=== PATIENT | male | born 1940 | race Caucasian/White ===

== ENCOUNTER → 2017-01-27 | Outpatient (CLI) | payer OTHER ==
[~2017-01-27] MED LIST: ASPCH81 PO; SIMV40TA2 PO
[2017-01-27 12:11] LABS: BASO % 0.9 %; BASO ABS # 0.04 K/uL (0-0.2); COMPLETE YES; HEMATOCRIT 39.4 % (42-52); IG% 0.2 %; LYMPH % 21.2 %; LYMPH ABS # 0.96 K/uL (1.2-3.4); MEAN CELL VOLUME 96.3 fL (80-100); MEAN CORPUSCULAR HEMOGLOBIN 35.5 pg (25-34); MEAN CORPUSCULAR HGB CONC 36.8 g/dl (32-36); MEAN PLATELET VOLUME 10.3 fL (7.4-10.4); MONO % 13.5 %; NEUT % 62.2 %; PLATELET COUNT 194 K/uL (130-400); RED BLOOD COUNT 4.09 M/uL (4.7-6.1); WHITE BLOOD COUNT 4.52 K/uL (4.8-10.8)
[2017-01-27 12:25] LABS: ALT/SGPT 22 U/L (12-78); BLOOD UREA NITROGEN 16 mg/dl (7-18); BUN/CREATININE RATIO 15.9 (10-20); CALCIUM 8.7 mg/dl (8.5-10.1); CARBON DIOXIDE 29 mmol/L (21-32); CHLORIDE 102 mmol/L (98-107); CHOLESTEROL 156 mg/dl (0-200); GLUCOSE 103 mg/dl (70-99); POTASSIUM 4.3 mmol/L (3.5-5.1); SODIUM 137 mmol/L (136-145); TRIGLYCERIDES 64 mg/dl (0-150); VERY LOW DENSITY LIPOPROT CALC 13 mg/dl
[2017-01-27 12:30] LABS: ALB/GLOB RATIO 1.6 (0.9-2); ALKALINE PHOSPHATASE 49 U/L (45-117); AST/SGOT 10 U/L (15-37); CHOLESTEROL/HDL RATIO 2.8; HDL CHOLESTEROL 55 mg/dl; LDL CHOLESTEROL CALCULATED 88 mg/dl; PROSTATE SPECIFIC ANTIGEN 0.084 ng/ml (0.000-4.000)
--- NOTE | 2017-02-02 06:52 | CODING QUERY MEDICAL NECESSITY ---
SUPPORTING DIAGNOSIS NEEDED Dr. Duncan, A supporting diagnosis is required for the test/procedure performed on this patient in order for us to be reimbursed by the patient's insurance. Please provide a supporting diagnosis for the following test/procedure listed below next to the test name along with your signature. *If there is no additional diagnosis for this patient that would support the following test/procedure please document that below next to the test/procedure. Test(s)/Procedure(s) that require a supporting diagnosis: * [id number] PSA DIAGNOSIS: DATE OF SERVICE: 01/27/17 Provider Signature: Date: Thank you [facility] Information Management Once completed, please kindly fax back to [phone] For questions please call [phone]
== END | disposition home or self-care (01) ==
LOC: C.LABBFT 08:05
PROVIDERS: ATTEND Internal Medicine
DX: Z00.00 Encounter for general adult medical examination without abnormal findings (principal); R39.9 Unspecified symptoms and signs involving the genitourinary system

== ENCOUNTER → 2018-01-25 | Outpatient (CLI) | payer OTHER ==
[2018-01-25 12:10] LABS: BASO % 0.8 %; BASO ABS # 0.04 K/uL (0-0.2); EOS % 3.6 %; EOS ABS # 0.17 K/uL (0-0.5); HEMATOCRIT 41.5 % (42-52); HEMOGLOBIN 14.8 g/dL (14.0-18.0); IG# 0.02 K/uL (0.00-0.02); LYMPH % 21.8 %; LYMPH ABS # 1.04 K/uL (1.2-3.4); MEAN CELL VOLUME 96.5 fL (80-100); MEAN CORPUSCULAR HEMOGLOBIN 34.4 pg (25-34); MEAN CORPUSCULAR HGB CONC 35.7 g/dl (32-36); MONO % 10.1 %; MONO ABS # 0.48 K/uL (0.11-0.59); NEUT % 63.3 %; NEUT ABS # 3.02 K/uL (1.4-6.5); PLATELET COUNT 210 K/uL (130-400); RED CELL DISTRIBUTION WIDTH CV 12.4 % (11.5-14.5); RED CELL DISTRIBUTION WIDTH SD 43.6 fL (36.4-46.3); WHITE BLOOD COUNT 4.77 K/uL (4.8-10.8)
[2018-01-25 12:30] LABS: ALBUMIN 4.2 gm/dl (3.4-5.0); ALT/SGPT 22 U/L (12-78); BLOOD UREA NITROGEN 17 mg/dl (7-18); CALCIUM 8.6 mg/dl (8.5-10.1); CARBON DIOXIDE 29 mmol/L (21-32); CHOLESTEROL 157 mg/dl (0-200); CREATININE 0.92 mg/dl (0.60-1.40); GLUCOSE 107 mg/dl (70-99); SODIUM 138 mmol/L (136-145)
[2018-01-25 12:34] LABS: ALKALINE PHOSPHATASE 55 U/L (45-117); AST/SGOT 15 U/L (15-37); LDL CHOLESTEROL CALCULATED 94 mg/dl; TOTAL PROTEIN 7.3 gm/dl (6.4-8.2)
== END | disposition home or self-care (01) ==
LOC: C.LAB 10:36
PROVIDERS: ATTEND Internal Medicine
DX: Z00.00 Encounter for general adult medical examination without abnormal findings (principal); E78.5 Hyperlipidemia, unspecified; R39.9 Unspecified symptoms and signs involving the genitourinary system; D72.819 Decreased white blood cell count, unspecified; N40.1 Benign prostatic hyperplasia with lower urinary tract symptoms; I49.1 Atrial premature depolarization

== ENCOUNTER 2025-08-27 13:51 | Observation (INO) ==
--- NOTE | 2025-08-27 14:26 | Electrocardiogram Report ---
Test Reason : Blood Pressure : */* mmHG Vent. Rate : 67 BPM Atrial Rate : 67 BPM P-R Int : 156 ms QRS Dur : 74 ms QT Int : 388 ms P-R-T Axes : 38 15 67 degrees QTcB Int : 409 ms Normal sinus rhythm Normal ECG When compared with ECG of 22-Jan-2009 07:30, No significant change Confirmed by Theodore Holland ([id number]) on 08/27/2025 2:26:22 PM Referred By: Confirmed By: Theodore Holland
[2025-08-27 14:33] LABS: Hematocrit (blood only) 42.2 % (42.0-52.0); Hemoglobin 14.7 g/dl (14.0-18.0); Mean Corpuscular Hemoglobin 33.2 pg (25.0-34.0); Mean Corpuscular Volume 95.3 fL (80.0-100.0); Platelet Count 181 K/uL (130-400); RDW Standard Deviation 40.7 fL (36.4-46.3); Red Blood Count 4.43 M/uL (4.70-6.10); White Blood Count 5.69 K/ul (4.8-10.8)
--- NOTE | 2025-08-27 14:34 | Emergency Department Note ---
Impression & Plan Brain TIA, Double vision, Elevated BUN ED Provider Note NAME: NATHAN JONES AGE: 84 SEX: M : 1940 ARRIVES VIA: Walk-In INFORMANT: Patient ED PROVIDER(S): Delmar Arias DO CHIEF COMPLAINT: Double vision out of right eye HPI: Patient is an 84-year-old male with a past medical history of BPH, Lyme disease, hyperlipidemia who presents to the ER for double vision out of his right eye. Started last night around 930. It resolved when he woke up this morning. He got up around 4 AM. Denies any weakness or numbness in the arms or legs. No chest pain or shortness of breath. No dysuria, urgency or frequency. No other exacerbating or remitting factors. He has never had this before. He notes with both eyes open and double vision was just on the right eye. When he closes right eye the vision went back to normal. ADDITIONAL HISTORY OBTAINED: Per HPI Chronic Medical/Social Conditions Affecting Care: Per HPI PAST MEDICAL HISTORY:See Below PAST SURGICAL HISTORY:See Below FAMILY HISTORY:See Below SOCIAL HISTORY:See Below HOME MEDICATIONS:See Below ALLERGIES:See Below VITALS:See Below PHYSICAL EXAMINATION: GENERAL: Sitting up in bed, alert, well appearing, well nourished, no distress, non-toxic EYE EXAM: normal conjunctiva. PERRL and EOM's grossly intact. OROPHARYNX: no exudate, no erythema, lips, buccal mucosa, and tongue normal and mucous membranes are moist NECK: supple, no nuchal rigidity, no adenopathy, non-tender LUNGS: Clear to auscultation. Normal chest wall mechanics HEART: no murmurs, S1 normal and S2 normal ABDOMEN: abdomen soft, non-tender, normo-active bowel sounds, no masses, no rebound or guarding. BACK: Back is symmetrical on inspection and there is no deformity, no midline tenderness, no CVA tenderness. SKIN: no rashes and no bruising UPPER EXTREMITIES: upper extremities are grossly normal. LOWER EXTREMITIES: No pitting edema. NEURO EXAM: Normal sensorium, cranial nerves II-XII intact, normal speech, no weakness of arms, no weakness of legs. No drift. Finger to nose intact. Gross sensation intact. 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 IV was established blood work was obtained. Labs show no significant leukocytosis or anemia. INR unremarkable. BMP with LFTs bilirubin is unremarkable. Patient was seen evaluated by ophthalmology as an outpatient and their exam was unremarkable and he was sent in here for stroke workup. CT of the head as well as angios of the head and neck do show a possible cerebellar infarct subacute. Patient is currently neurologically intact at this time. Discussed case with [facility] and they recommended admission and full workup. They did recommend 300 of Plavix and aspirin as well. They will place in note. Case was discussed with the hospitalist for further evaluation management treatment. Patient was out of the window for consideration for TNK. Consults/Care Managements Discussions: Per [facility] Triage Nursing notes reviewed. Limited review of prior medical records performed Vital Signs: reviewed and remarkable for no significant abnormalities Differential diagnosis: Differential Diagnosis includes but is not limited to ischemic Stroke, hemorrhagic stroke, bells palsy, mass, neoplasm, migraine headache, seizure, subarachnoid hemorrhage, TIA, and transient global amnesia. ER treatment provided: See below Diagnostics interpreted by me include EKG and cardiac monitoring as listed below: -Cardiac Monitoring: An order was placed for continuous cardiac monitoring. The monitor shows a rate of 70 with sinus rhythm. -ECG: Sinus rhythm rate of 67 Normal axis No PVCs QTc 409 -Laboratory studies:Interpreted by me as stated above in MDM and shown below. Imaging studies: Xrays: As interpreted by me: Chest x-ray was clean CTs show: CT angios of the head and neck as described above Procedures:none Critical Care: None Past Med/Surg History Problem List (Updated 08/27/25 @ 17:20 by Delmar Arias DO) Elevated BUN (Acute) Double vision (Acute) Brain TIA (Acute) HLD (hyperlipidemia) Diplopia TIA (transient ischemic attack) Systolic ejection murmur Family history of colon cancer BPH loc w/o ur obs/LUTS Carpal tunnel syndrome s/p surgical release Post-Lyme disease syndrome Vitamin B12 deficiency (non anemic) (Chronic) Impaired glucose metabolism (Chronic) Hyperlipidemia LDL goal <100 (Chronic) Benign colonic polyp (Chronic) Medical History History of COVID-19 Lyme disease Surgical History Hx of cataract extraction History of colonoscopy H/O vasectomy Family History Father Coronary heart disease Myocardial infarction Mother Multiple myeloma Sister Diabetes Hypertension Colorectal cancer Brother Dyslipidemia Denies family history of Ovarian cancer Prostate cancer Breast cancer Lung cancer Stroke Social History (Updated 02/26/25 @ 08:30 by Sharmila Das) Smoking Status: Never smoker Second Hand Exposure: No; Do You Dip or Chew Tobacco: No; Hx Alcohol Use: Yes Alcohol Intake Frequency: Never Hx Substance Use: No Preferred Language: Ghanaian Communication Ability: Effective Visual Impairment: Limited Hearing Ability: Normal Service Control Operator Required: No Beliefs That Will Affect Care: None marital status: Current Living Situation: Spouse current occupational status: retired How many Children do You have: 2 Feels Safe at Home: Yes Childhood Exposure to Second-Hand Smoke: No Diet: low salt caffeine: Yes Dental Care, Regularly: Yes Physical Activity Frequency: 3-4 Times per Week Physical Activity Frequency Comment: walks Seatbelt Use: always Sunscreen Use: No Do you think of yourself as: straight/heterosexual Assistive Devices: Glasses Allergies Allergies Allergy/AdvReac Type Severity Reaction Status Date / Time sulfite AdvReac Severe loose Verified 08/23/25 14:24 stools Home Meds Home Medications Medication Instructions Recorded Confirmed cyanocobalamin (vitamin B-12) 1,000 mcg PO QPM 09/24/23 08/27/25 1,000 mcg capsule melatonin 3 mg tablet 3 mg PO HS PRN prn 09/24/23 08/27/25 Previous Rx's Medication Instructions Recorded tamsulosin 0.4 mg capsule 0.4 mg PO QPM #90 caps 10/11/24 simvastatin 20 mg tablet 20 mg PO HS 90 days #90 tabs 06/14/25 escitalopram oxalate 5 mg tablet 5 mg PO DAILY #30 tabs 08/24/25 Results & Data (ED) Vital Signs Vital Signs - 24 hr 08/27/25 13:56 08/27/25 14:31 Temperature 35.6 C L Temperature Source Skin Pulse Rate 70 64 Respiratory Rate 17 Respiratory Effort / Characteristics Non-Labored Spontaneous Respiratory Depth Normal Respiratory Pattern Regular Blood Pressure 132/69 Blood Pressure Mean 90 Pulse Oximetry 98 Oxygen Delivery Method Room Air Sepsis Recent Fever Within 48 Hours No Sepsis New/Unexplained Change in Mental Status N/A Sepsis Action Taken by Nursing No Action Required Laboratory Data 08/27/25 14:13 08/27/25 14:13 Lab Results 08/27/25 Range/Units 14:13 WBC 5.69 (4.8-10.8) K/ul RBC 4.43 L (4.70-6.10) M/uL Hgb 14.7 (14.0-18.0) g/dl Hct 42.2 (42.0-52.0) % MCV 95.3 (80.0-100.0) fL MCH 33.2 (25.0-34.0) pg MCHC 34.8 (32.0-36.0) g/dL RDW Std Deviation 40.7 (36.4-46.3) fL RDW Coeff of Bridger 11.7 (11.5-14.5) % Plt Count 181 (130-400) K/uL MPV 9.3 L (9.4-12.4) fL PT 10.9 (9.0-12.0) Seconds INR 1.0 (0.9-1.1) APTT 24 (21-31) Seconds PTT Ratio 0.9 Sodium 140 (136-145) mmol/L Potassium 4.1 (3.5-5.1) mmol/L Chloride 104 (98-107) mmol/L Carbon Dioxide 30 (21-32) mmol/L Anion Gap 6 (3-11) BUN 26 H (6-23) mg/dl Creatinine 0.83 (0.6-1.4) mg/dl Est Cr Clr Drug Dosing 61.0 ml/min eGFR 86.84 BUN/Creatinine Ratio 31.3 H (10-20) Glucose 90 (70-99(Fasting)) mg/dl Calcium 9.5 (8.6-10.3) mg/dl Magnesium 2.3 (1.7-2.4) mg/dl Total Bilirubin 0.9 (0.2-1.0) mg/dl AST 12 L (13-39) U/L ALT 12 (7-52) U/L Alkaline Phosphatase 53 (34-104) U/L Total Protein 7.1 (6.0-8.3) gm/dl Albumin 4.3 (3.4-5.0) gm/dl Globulin 2.8 (2.5-4.0) gm/dl Albumin/Globulin Ratio 1.5 (0.9-2) Administered Medications Discontinued Medications Ioversol (Optiray 320 125ml) 115 ml IV ONCE ONE Stop: 08/27/25 15:06 Last Admin: 08/27/25 15:05 Dose: 115 ml Documented By: [facility] Imaging Data Radiologist's Impression: Chest X-Ray 08/27/25 14:04 XR chest 1V portable CLINICAL HISTORY: stroke alert COMPARISON STUDY: 01/22/2009 FINDINGS: Heart size and pulmonary vasculature are normal. No consolidation or pleural effusion seen. No pneumothorax. IMPRESSION: No acute findings. ACT 112: Negative or not required by law. Electronically signed by: Oscar Hernandez M.D. 08/27/2025 2:[address] 08/27/25 14:04 CT head/brain wo con CLINICAL HISTORY: 84 years-old Male with Neuro deficit, acute, stroke suspected. Acute stroke like symptoms TECHNIQUE: Multiple axial CT images of the head were obtained without contrast. A dose lowering technique was utilized adhering to the principles of ALARA. CT DOSE: 625.8 mGy.cm COMPARISON: None. FINDINGS: No acute intracranial hemorrhage, midline shift, intracranial mass, hydrocephalus, territorial ischemia or abnormal extra-axial collection. Involutional changes with white matter hypodensities suggest chronic microvascular ischemic disease. 8 mm age-indeterminate left cerebellar lacunar infarct on image 8 series 2. The calvarium is intact. The paranasal sinuses, mastoid air cells, and middle ear cavities are clear. IMPRESSION: 1. No acute intracranial abnormality identified. 2. Involutional changes with chronic microvascular ischemic disease. 3. Age indeterminate subcentimeter left cerebellar lacunar infarct. ACT 112: Negative or not required by law. The above report was generated using voice recognition software. It may contain grammatical, syntax or spelling errors. Electronically signed by: Dale Pritchard M.D. 08/27/2025 2:48 PM Head CTA 08/27/25 14:19 CT angio head w con CLINICAL HISTORY: 84 years-old Male with ? stroke. Acute stroke like symptoms COMPARISON STUDY: CTA neck of same day TECHNIQUE: Following the IV administration of 115 cc of Optiray, CT angiogram of the brain was performed from the skull base to the vertex. Images are reviewed in the axial, sagittal, and coronal planes. 3-D MIPS images are created and assessed. IV contrast was administered without complication. All measurements were obtained according to NASCET criteria. A dose lowering technique was utilized adhering to the principles of ALARA. CT DOSE: 420.15 mGy.cm FINDINGS: CT BRAIN: Dictated separately.. CT ANGIOGRAM OF THE BRAIN: The imaged bilateral internal carotid arteries are patent. The bilateral anterior and middle cerebral arteries are also patent. The vertebrobasilar system and posterior cerebral arteries are widely patent. There is no aneurysm, high-grade stenosis, or proximal branch occlusion identified. Dural sinuses appear patent. IMPRESSION: Unremarkable CTA of the head. ACT 112: Negative or not required by law. The above report was generated using voice recognition software. It may contain grammatical, syntax or spelling errors. Electronically signed by: Dale Pritchard M.D. 08/27/2025 3:32 PM Neck CTA 08/27/25 14:19 CT ANGIOGRAM OF THE NECK CLINICAL HISTORY: Neurological deficit. Stroke like symptoms. COMPARISON STUDY: No priors TECHNIQUE: Following the IV administration of 115 of Optiray 320, CT angiogram of the neck was performed from the aortic arch to the skull base. Images are reviewed in the axial, sagittal, and coronal planes. 3-D MIPS images are created and assessed. IV contrast was administered without complication. All measurements were calculated based on NASCET criteria. A dose lowering technique was utilized adhering to the principles of ALARA. FINDINGS: Thoracic aorta: Visualized portions of the thoracic aorta are normal in caliber. The aortic arch demonstrates bovine variant anatomy. Right carotid arterial system: The right common carotid artery is widely patent, as are the right internal and external carotid arteries. Mild calcified plaque is seen in the carotid bulb. Left carotid arterial system: The left common carotid artery is widely patent, as are the left internal and external carotid arteries. Calcified plaque is seen in the carotid bulb. Vertebral arteries: Widely patent bilaterally noting left-sided dominance. Subclavian arteries: Widely patent bilaterally. Intracranial vasculature: The visualized intracranial vessels at the skull base are patent. Jugular veins: Patent bilaterally. Brain parenchyma: The visualized brain parenchyma the skull base is within normal limits. Lung apices: Partially visualized upper lobe lung parenchyma appears clear. Soft tissues: The visualized pharyngeal soft tissues are normal in appearance noting angiographic phase technique. The oropharyngeal airway appears widely patent. The salivary and thyroid glands are normal in appearance. No cervical lymphadenopathy is seen. Skeletal structures: The skeletal structures are osteopenic. The visualized calvarium at the skull base appears intact. The imaged cervical spine is maintained noting multilevel spondylosis. Sinuses and mastoids: There is mild mucosal thickening in the left maxillary antrum. The mastoid air cells are well pneumatized. IMPRESSION: Unremarkable CT angiogram of the neck. ACT 112: Negative or not required by law. Electronically signed by: Dre Cohen M.D. 08/27/2025 3:25 PM Discharge Plan Visit Data Chief Complaint: TIA Symptoms Stated Complaint: REF BY DOC FOR DOUBLE VISION, POSSIBLE TIA ED Provider: Delmar Arias Discharge Problem: Brain TIA, Double vision, Elevated BUN Condition: Fair Forms Stand Alone Forms: My [facility] Prescriptions Prescriptions: No Action tamsulosin 0.4 mg capsule 0.4 mg PO QPM Qty: 90 3RF simvastatin 20 mg tablet 20 mg PO HS 90 Days Qty: 90 4RF escitalopram oxalate 5 mg tablet 5 mg PO DAILY Qty: 30 5RF cyanocobalamin (vitamin B-12) 1,000 mcg capsule 1,000 mcg PO QPM melatonin 3 mg Tablet 3 mg PO HS PRN (Reason: prn) Referrals Referrals: Cecelia Mason MD [Primary Care Provider] -
--- NOTE | 2025-08-27 14:44 | XRay Report ---
XR chest 1V portable CLINICAL HISTORY: stroke alert COMPARISON STUDY: 01/22/2009 FINDINGS: Heart size and pulmonary vasculature are normal. No consolidation or pleural effusion seen. No pneumothorax. IMPRESSION: No acute findings. ACT 112: Negative or not required by law. Electronically signed by: Oscar Hernandez M.D. 08/27/2025 2:43 PM
--- NOTE | 2025-08-27 14:50 | CT Scan Report ---
CT head/brain wo con CLINICAL HISTORY: 84 years-old Male with Neuro deficit, acute, stroke suspected. Acute stroke like s ymptoms TECHNIQUE: Multiple axial CT images of the head were obtained without contrast. A dose lowering tech nique was utilized adhering to the principles of ALARA. CT DOSE: 625.8 mGy.cm COMPARISON: None. FINDINGS: No acute intracranial hemorrhage, midline shift, intracranial mass, hydrocephalus, territorial ischem ia or abnormal extra-axial collection. Involutional changes with white matter hypodensities suggest c hronic microvascular ischemic disease. 8 mm age-indeterminate left cerebellar lacunar infarct on imag e 8 series 2. The calvarium is intact. The paranasal sinuses, mastoid air cells, and middle ear cavities are clear . IMPRESSION: 1. No acute intracranial abnormality identified. 2. Involutional changes with chronic microvascular ischemic disease. 3. Age indeterminate subcentimeter left cerebellar lacunar infarct. ACT 112: Negative or not required by law. The above report was generated using voice recognition software. It may contain grammatical, syntax o r spelling errors. Electronically signed by: Dale Pritchard M.D. 08/27/2025 2:48 PM
[2025-08-27 14:51] LABS: Alanine Aminotransferase 12.0 U/L (7-52); Albumin Globulin Ratio 1.5 (0.9-2); Albumin Level 4.3 gm/dl (3.4-5.0); Alkaline Phosphatase 53.0 U/L (34-104); Anion Gap 6.0 (3-11); Bilirubin,Total 0.9 mg/dl (0.2-1.0); Blood Urea Nitrogen 26.0 mg/dl (6-23); Calcium 9.5 mg/dl (8.6-10.3); Carbon Dioxide 30.0 mmol/L (21-32); Chloride 104.0 mmol/L (98-107); Creatinine Clr Calc Pharmacy 61.0 ml/min; Globulin 2.8 gm/dl (2.5-4.0); Glucose 90.0 mg/dl (70-99(Fasting)); Magnesium 2.3 mg/dl (1.7-2.4); Potassium 4.1 mmol/L (3.5-5.1); Sodium 140.0 mmol/L (136-145); Total Protein 7.1 gm/dl (6.0-8.3)
[2025-08-27 15:02] LABS: INR 1.0 (0.9-1.1); Partial Thromboplastin Time 24 Seconds (21-31); Prothrombin Time 10.9 Seconds (9.0-12.0)
[2025-08-27] MEDS: OPTIRAY 320 125ml IV ONE (15:05)
--- NOTE | 2025-08-27 15:27 | CT Scan Report ---
CT ANGIOGRAM OF THE NECK CLINICAL HISTORY: Neurological deficit. Stroke like symptoms. COMPARISON STUDY: No priors TECHNIQUE: Following the IV administration of 115 of Optiray 320, CT angiogram of the neck was perfor med from the aortic arch to the skull base. Images are reviewed in the axial, sagittal, and coronal p lanes. 3-D MIPS images are created and assessed. IV contrast was administered without complication. A ll measurements were calculated based on NASCET criteria. A dose lowering technique was utilized adh ering to the principles of ALARA. FINDINGS: Thoracic aorta: Visualized portions of the thoracic aorta are normal in caliber. The aortic arch demo nstrates bovine variant anatomy. Right carotid arterial system: The right common carotid artery is widely patent, as are the right int ernal and external carotid arteries. Mild calcified plaque is seen in the carotid bulb. Left carotid arterial system: The left common carotid artery is widely patent, as are the left internal wholesaler al and external carotid arteries. Calcified plaque is seen in the carotid bulb. Vertebral arteries: Widely patent bilaterally noting left-sided dominance. Subclavian arteries: Widely patent bilaterally. Intracranial vasculature: The visualized intracranial vessels at the skull base are patent. Jugular veins: Patent bilaterally. Brain parenchyma: The visualized brain parenchyma the skull base is within normal limits. Lung apices: Partially visualized upper lobe lung parenchyma appears clear. Soft tissues: The visualized pharyngeal soft tissues are normal in appearance noting angiographic pha se technique. The oropharyngeal airway appears widely patent. The salivary and thyroid glands are nor mal in appearance. No cervical lymphadenopathy is seen. Skeletal structures: The skeletal structures are osteopenic. The visualized calvarium at the skull ba se appears intact. The imaged cervical spine is maintained noting multilevel spondylosis. Sinuses and mastoids: There is mild mucosal thickening in the left maxillary antrum. The mastoid air cells are well pneumatized. IMPRESSION: Unremarkable CT angiogram of the neck. ACT 112: Negative or not required by law. Electronically signed by: Dre Cohen M.D. 08/27/2025 3:25 PM
--- NOTE | 2025-08-27 15:34 | CT Scan Report ---
CT angio head w con CLINICAL HISTORY: 84 years-old Male with ? stroke. Acute stroke like symptoms COMPARISON STUDY: CTA neck of same day TECHNIQUE: Following the IV administration of 115 cc of Optiray, CT angiogram of the brain was perfor med from the skull base to the vertex. Images are reviewed in the axial, sagittal, and coronal planes . 3-D MIPS images are created and assessed. IV contrast was administered without complication. All me asurements were obtained according to NASCET criteria. A dose lowering technique was utilized adherin g to the principles of ALARA. CT DOSE: 420.15 mGy.cm FINDINGS: CT BRAIN: Dictated separately.. CT ANGIOGRAM OF THE BRAIN: The imaged bilateral internal carotid arteries are patent. The bilateral anterior and middle cerebral arteries are also patent. The vertebrobasilar system and posterior cerebral arteries are widely tomlinson nt. There is no aneurysm, high-grade stenosis, or proximal branch occlusion identified. Dural sinuses appear patent. IMPRESSION: Unremarkable CTA of the head. ACT 112: Negative or not required by law. The above report was generated using voice recognition software. It may contain grammatical, syntax o r spelling errors. Electronically signed by: Dale Pritchard M.D. 08/27/2025 3:32 PM
--- NOTE | 2025-08-27 16:23 | History & Physical Report ---
"Date of Service August 27, 2025 Assessment & Plan (1) TIA (transient ischemic attack): (2) Diplopia: (3) HLD (hyperlipidemia): (4) History of CVA (cerebrovascular accident): Plan This patient is a 84-year-old male who presented on 08/27 after developing an acute episode of diplopia the night prior to arrival. His symptoms began at 9 PM on 08/26, and lasted until he fell asleep a couple hours later. He woke up and all symptoms had resolved. He denied prior history of stroke or TIA on arrival. He went in to see his eye doctor that morning, and was told to come into the Emergency Department for TIA workup. #TIA symptoms | diplopia Not a TNKase candidate based on patient's timeline of symptoms Head CT revealed an age-indeterminate left cerebellar lacunar infarct; no acute intracranial abnormalities Head/neck CTA unremarkable Brain MRI ordered, pending Echocardiogram with bubble study ordered, pending Passed dysphagia screen; okay for p.o. intake Plavix 300 mg p.o. loading dose x 1 Initiate patient on DAPT with aspirin 81 mg and Plavix 75 mg daily No need for permissive HTN, as patient has been asymptomatic for almost 24h at time of admission and is normotensive on arrival Fall precautions PT/OT evaluations appreciated #History of prior stroke Age-indeterminate stroke noted on head CT; patient was unaware of this He was previously on aspirin 81 mg daily x 7 years for a [place] study, but stopped taking this medication at the end of the study Do not suspect prior stroke stroke was the cause of his acute symptoms #HLD Most recent fasting lipid panel on 08/23 revealed TGs, cholesterol, LDL, and VLDL all within normal limits Hold simvastatin 20 mg HS Start on atorvastatin 80 mg HS #BPH Continue tamsulosin #Depression Continue escitalopram Disposition: Obs - Admit to [facility] telemetry VTE PPx: SCDs History of Present Illness Chief Complaint: TIA symptoms Primary Care Provider: Cecelia Mason MD Mr. Remy is an 84-year-old male with PMH of vitamin B12 deficiency and colon cancer. He presented on 08/27 for double vision that developed the night prior. Patient was feeling fine up until 9 PM when he developed diplopia in both eyes. He was gradually improving prior to bedtime, and then he woke up without any residual symptoms. No eye pain, or loss of vision. He went into see his eye doctor this morning, and was referred to the emergency department to be assessed for a TIA. Currently, all of his symptoms have fully resolved. He denies any prior history of stroke or TIA. He denies any strokelike symptoms such as slurred speech, facial droop, unilateral deficits. No PMH of T2DM or HTN. He does have a history of HLD, but was told that he might be able to be taken off the statin recently. Of note, the only recent medication change is that he was started on Lexapro a couple days ago for anxiety/depression, and he has taken 2 doses in that period of time. Patient denies any sick contacts. NKDA. No reason why he could not take aspirin or Plavix, and he was previously on aspirin x 7 years while in the [place] study. No PMH of GI bleeds or head bleeds. Patient denies smoking, tobacco use, or recent alcohol use. Patient is slightly hypothermic at 35.6 C at time of admission; vitals otherwise stable. ED course: ROS: Patient endorses tinnitus (which is chronic and has been present for the past 30 years) Patient denies fever, chills, night sweats, loss of vision, headache, rashes, tick bites, slurred speech, facial droop, unilateral deficits, chest pain, SOB, cough, abdominal pain, N/V/D, change in urinary bowel habits, or numbness or tingling in the arms or legs. Allergies Allergy/AdvReac Type Severity Reaction Status Date / Time sulfite AdvReac Severe loose Verified 08/23/25 14:24 stools Home Medications Medication Instructions Recorded Confirmed Type cyanocobalamin (vitamin B-12) 1,000 mcg PO QPM 09/24/23 08/27/25 History 1,000 mcg capsule melatonin 3 mg tablet 3 mg PO HS PRN prn 09/24/23 08/27/25 History tamsulosin 0.4 mg capsule 0.4 mg PO QPM #90 caps 10/11/24 08/27/25 Rx simvastatin 20 mg tablet 20 mg PO HS 90 days #90 tabs 06/14/25 08/27/25 Rx escitalopram oxalate 5 mg tablet 5 mg PO DAILY #30 tabs 08/24/25 08/27/25 Rx Past Med/Surg History Problem List (Updated 11/03/25 @ 18:01 by Eitan Huffman PA-C) History of CVA (cerebrovascular accident) Elevated BUN (Acute) Double vision (Acute) Brain TIA (Acute) HLD (hyperlipidemia) Diplopia TIA (transient ischemic attack) Systolic ejection murmur Family history of colon cancer BPH loc w/o ur obs/LUTS Carpal tunnel syndrome s/p surgical release Post-Lyme disease syndrome Vitamin B12 deficiency (non anemic) (Chronic) Impaired glucose metabolism (Chronic) Hyperlipidemia LDL goal <100 (Chronic) Benign colonic polyp (Chronic) Medical History History of COVID-19 Lyme disease Surgical History Hx of cataract extraction History of colonoscopy H/O vasectomy Family History Father Coronary heart disease Myocardial infarction Mother Multiple myeloma Sister Diabetes Hypertension Colorectal cancer Brother Dyslipidemia Denies family history of Ovarian cancer Prostate cancer Breast cancer Lung cancer Stroke Social History (Updated 02/26/25 @ 08:30 by Sharmila Das) Smoking Status: Never smoker Second Hand Exposure: No; Do You Dip or Chew Tobacco: No; Hx Alcohol Use: No Hx Substance Use: No Preferred Language: Kazakh Communication Ability: Effective Visual Impairment: Limited Hearing Ability: Normal Cotton 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 Required: No Beliefs That Will Affect Care: None marital status: Current Living Situation: Spouse current occupational status: retired How many Children do You have: 2 Feels Safe at Home: Yes Safety Concerns: Feels Safe At This Time Childhood Exposure to Second-Hand Smoke: No Diet: low salt caffeine: Yes Dental Care, Regularly: Yes Physical Activity Frequency: 3-4 Times per Week Physical Activity Frequency Comment: walks Seatbelt Use: always Sunscreen Use: No Do you think of yourself as: straight/heterosexual Assistive Devices: Glasses Review of Systems Review of Systems: See HPI above Physical Exam Physical Exam: General: no acute distress; pleasant affect; anxious; family at bedside; non- toxic appearing; cooperative; SpO2 98% on RA HEENT: normocephalic, atraumatic; PERRLA (eyes are dilated bilaterally) with EOMs intact; vision and hearing appear grossly intact; patient demonstrates ability to protrude and wiggle tongue bilaterally without unilateral deficits; patient demonstrates ability to smile, frown, and lift eyebrows without unilateral deficits appreciated Neck: supple; trachea midline Skin: warm, dry without signs of tenting; no cyanosis; no rashes, bruising, lesions, or erythema noted CV: chest wall NTP; RRR; S1/S2 normal; no murmurs/rubs/gallops; pulses intact and symmetric at radial, DP, and PT Lungs: no acute respiratory distress; symmetrical chest wall expansion; clear breath sounds across all lung sánchez w/o adventitious sounds; no wheezing ABD: Soft, NTP; BS present; no rebound/guarding; no distention MSK: no tics or fasciculations; no edema noted in the LEs b/l, nonerythematous; 5/5 veterinary dentist strength bilaterally; 5/5 strength in the upper no extremities bilaterally with flexion/extension assessed at the elbows and knees Neuro: A&Ox3; normal mood and affect; fluent speech; no facial droop; no slurred speech; negative pronator drift; patient reports sensation is intact and symmetric in the face, UE's, and LE's bilaterally Results & Data Results & Data Vital Signs (Past 12 Hours) Vital Signs Temp Pulse Resp BP Pulse Ox O2 Del Method 08/27/25 14:31 64 08/27/25 13:56 35.6 C L 70 17 132/69 98 Room Air Laboratory Results Abnormal lab results 08/27/25 Range/Units 14:13 RBC 4.43 L (4.70-6.10) M/uL MPV 9.3 L (9.4-12.4) fL BUN 26 H (6-23) mg/dl BUN/Creatinine Ratio 31.3 H (10-20) AST 12 L (13-39) U/L Diagnostic Findings Chest X-Ray 08/27/25 14:04 XR chest 1V portable CLINICAL HISTORY: stroke alert COMPARISON STUDY: 01/22/2009 FINDINGS: Heart size and pulmonary vasculature are normal. No consolidation or pleural effusion seen. No pneumothorax. IMPRESSION: No acute findings. ACT 112: Negative or not required by law. Electronically signed by: Oscar Hernandez M.D. 08/27/2025 2:[address] 08/27/25 14:04 CT head/brain wo con CLINICAL HISTORY: 84 years-old Male with Neuro deficit, acute, stroke suspected. Acute stroke like symptoms TECHNIQUE: Multiple axial CT images of the head were obtained without contrast. A dose lowering technique was utilized adhering to the principles of ALARA. CT DOSE: 625.8 mGy.cm COMPARISON: None. FINDINGS: No acute intracranial hemorrhage, midline shift, intracranial mass, hydrocephalus, territorial ischemia or abnormal extra-axial collection. Involutional changes with white matter hypodensities suggest chronic microvascular ischemic disease. 8 mm age-indeterminate left cerebellar lacunar infarct on image 8 series 2. The calvarium is intact. The paranasal sinuses, mastoid air cells, and middle ear cavities are clear. IMPRESSION: 1. No acute intracranial abnormality identified. 2. Involutional changes with chronic microvascular ischemic disease. 3. Age indeterminate subcentimeter left cerebellar lacunar infarct. ACT 112: Negative or not required by law. The above report was generated using voice recognition software. It may contain grammatical, syntax or spelling errors. Electronically signed by: Dale Pritchard M.D. 08/27/2025 2:48 PM Head CTA 08/27/25 14:19 CT angio head w con CLINICAL HISTORY: 84 years-old Male with ? stroke. Acute stroke like symptoms COMPARISON STUDY: CTA neck of same day TECHNIQUE: Following the IV administration of 115 cc of Optiray, CT angiogram of the brain was performed from the skull base to the vertex. Images are reviewed in the axial, sagittal, and coronal planes. 3-D MIPS images are created and assessed. IV contrast was administered without complication. All measurements were obtained according to NASCET criteria. A dose lowering technique was utilized adhering to the principles of ALARA. CT DOSE: 420.15 mGy.cm FINDINGS: CT BRAIN: Dictated separately.. CT ANGIOGRAM OF THE BRAIN: The imaged bilateral internal carotid arteries are patent. The bilateral anterior and middle cerebral arteries are also patent. The vertebrobasilar system and posterior cerebral arteries are widely patent. There is no aneurysm, high-grade stenosis, or proximal branch occlusion identified. Dural sinuses appear patent. IMPRESSION: Unremarkable CTA of the head. ACT 112: Negative or not required by law. The above report was generated using voice recognition software. It may contain grammatical, syntax or spelling errors. Electronically signed by: Dale Pritchard M.D. 08/27/2025 3:32 PM Neck CTA 08/27/25 14:19 CT ANGIOGRAM OF THE NECK CLINICAL HISTORY: Neurological deficit. Stroke like symptoms. COMPARISON STUDY: No priors TECHNIQUE: Following the IV administration of 115 of Optiray 320, CT angiogram of the neck was performed from the aortic arch to the skull base. Images are reviewed in the axial, sagittal, and coronal planes. 3-D MIPS images are created and assessed. IV contrast was administered without complication. All measurements were calculated based on NASCET criteria. A dose lowering technique was utilized adhering to the principles of ALARA. FINDINGS: Thoracic aorta: Visualized portions of the thoracic aorta are normal in caliber. The aortic arch demonstrates bovine variant anatomy. Right carotid arterial system: The right common carotid artery is widely patent, as are the right internal and external carotid arteries. Mild calcified plaque is seen in the carotid bulb. Left carotid arterial system: The left common carotid artery is widely patent, as are the left internal and external carotid arteries. Calcified plaque is seen in the carotid bulb. Vertebral arteries: Widely patent bilaterally noting left-sided dominance. Subclavian arteries: Widely patent bilaterally. Intracranial vasculature: The visualized intracranial vessels at the skull base are patent. Jugular veins: Patent bilaterally. Brain parenchyma: The visualized brain parenchyma the skull base is within normal limits. Lung apices: Partially visualized upper lobe lung parenchyma appears clear. Soft tissues: The visualized pharyngeal soft tissues are normal in appearance noting angiographic phase technique. The oropharyngeal airway appears widely patent. The salivary and thyroid glands are normal in appearance. No cervical lymphadenopathy is seen. Skeletal structures: The skeletal structures are osteopenic. The visualized calvarium at the skull base appears intact. The imaged cervical spine is maintained noting multilevel spondylosis. Sinuses and mastoids: There is mild mucosal thickening in the left maxillary antrum. The mastoid air cells are well pneumatized. IMPRESSION: Unremarkable CT angiogram of the neck. ACT 112: Negative or not required by law. Electronically signed by: Dre Cohen M.D. 08/27/2025 3:25 PM ECG Additional Comments: ECG revealed NSR at 67 bpm; QTc 409 Code Status & VTE Plan Code Status Full code VTE Prophylaxis Plan VTE Prophylaxis will be ordered: Yes Supervising Physician Co-Signing Physician Notes I personally saw and examined the patient. I independently reviewed the labs, EKG, imaging, problem list, medication list, past medical history and family his tory. I verified all riggs points and agree with Eitan Huffman PA-C with the following exceptions and/or additions: 84 year old with no known prior stroke present so the ER with binocular diplopia. He feels as if the problem was with the right eye. Occurred with both left and right lateral vision. Resolved with monocular vision. Lasted for 2 hours. O/E HS RRR, no murmurs, Chest CTAB, Abdo SNT, CN 2->12 intact, no extremity weakness or loss of sensation A/P Old CVA + suspected TIA DAPT (21 days then aspirin alone), atorvastatin, Brain MRI negative. Monitor on telemetry overnight. TTE with bubble study. Follow up with neurology as outpatient. PG Care Time/CCT Total # of Minutes Spent Total Time Spent with Patient: Total time spent is greater than 50% in coordination of care (as documented) at patient's floor/unit and/or counseling patient: Coding [place] [address] INT INP/OBS CARE 3/75MIN Patient Type Established Medical Decision Making High Complexity Diagnoses TIA (transient ischemic attack) G45.9 Diplopia H53.2 HLD (hyperlipidemia) E78.5 History of CVA (cerebrovascular accident) Z86.73"
[2025-08-27] MEDS ORDERED: PHARMACIST DISCHARGE MED REC CONSULT PRN (16:29)
--- NOTE | 2025-08-27 17:56 | Magnetic Resonance Report ---
MRI of the brain performed without IV contrast History: Double vision Comparison: None Technique: Sagittal T1-weighted and axial T2-weighted, T2/FLAIR and diffusion-weighted with ADC map images of the brain were obtained without IV contrast. Findings: No evidence for intracranial mass lesion, mass-effect, midline shift, or abnormal extra-axial fluid collection. Cerebral atrophy is moderate. Minimal chronic small vessel ischemic changes. No abnormally reduced diffusion or evidence for acute infarct. Normal intravascular flow voids. Bilateral pseudophakia. Impression: Normal brain MRI Electronically signed by Chidi Pérez 08-27-2025 5:56 PM
[2025-08-27] MEDS ORDERED: MELATONIN 3 MG TAB PO PRN (19:13)
[2025-08-27] MEDS ORDERED: ACETAMINOPHEN 325 MG TAB PO PRN (19:13)
[2025-08-27] MEDS: CLOPIDOGREL BISULFATE 300 MG TAB PO STA (19:27)
[2025-08-27] MEDS: ASPIRIN 81 MG ECTAB PO STA (19:28)
[2025-08-27] MEDS: TAMSULOSIN HCL 0.4 MG CAP PO SCH (21:00)
[2025-08-27] MEDS: ATORVASTATIN 40 MG TAB PO SCH (21:00)
[2025-08-28 06:59] LABS: Hematocrit (blood only) 36.0 % (42.0-52.0); Hemoglobin 12.7 g/dl (14.0-18.0); Immature Granulocytes # (auto) 0.03 K/uL (0.01-0.20); Immature Granulocytes % (auto) 0.4 %; Mean Corpuscular Hemoglobin 33.2 pg (25.0-34.0); Mean Corpuscular Volume 94.0 fL (80.0-100.0); Platelet Count 161 K/uL (130-400); RDW Standard Deviation 39.4 fL (36.4-46.3); Red Blood Count 3.83 M/uL (4.70-6.10); White Blood Count 7.47 K/ul (4.8-10.8)
[2025-08-28 07:25] LABS: Anion Gap 6.0 (3-11); Blood Urea Nitrogen 22.0 mg/dl (6-23); Calcium 8.5 mg/dl (8.6-10.3); Carbon Dioxide 28.0 mmol/L (21-32); Chloride 106.0 mmol/L (98-107); Cholesterol 119.0 mg/dl (0-200); Creatinine Clr Calc Pharmacy 68.2 ml/min; Glucose 82.0 mg/dl (70-99(Fasting)); HDL Cholesterol 47.0 mg/dl; Potassium 4.2 mmol/L (3.5-5.1); Sodium 140.0 mmol/L (136-145); Triglycerides 43.0 mg/dl (0-150)
[2025-08-28 07:39] LABS: Hemoglobin A1C 5.5 % (4.5-5.6)
[2025-08-28 07:44] VITALS: RESP 16; TEMP 98.1; O2SAT 97
[2025-08-28] MEDS: ASPIRIN 81 MG ECTAB PO SCH (08:38)
[2025-08-28] MEDS: CLOPIDOGREL BISULFATE 75 MG TAB PO SCH (08:38)
[2025-08-28 10:27] VITALS: PULSE 73
[2025-08-28] MEDS: ESCITALOPRAM OXALATE 10 MG TAB PO SCH (11:19)
--- NOTE | 2025-08-28 11:31 | Discharge Summary ---
"Discharge Summary Date of Service August 28, 2025 Principal Dx & Hospital Course #1 = Principal Diagnosis (1) TIA (transient ischemic attack): (2) Diplopia: (3) HLD (hyperlipidemia): (4) History of CVA (cerebrovascular accident): Plan This patient is a 84-year-old male who presented on 08/27 after developing an acute episode of diplopia the night prior to arrival. His symptoms began at 9 PM on 08/26, and lasted until he fell asleep a couple hours later. He woke up and all symptoms had resolved. He denied prior history of stroke or TIA on arrival. He went in to see his eye doctor that morning, and was told to come into the Emergency Department for TIA workup. #TIA| diplopia Not a TNKase candidate based on patient's timeline of symptoms Head CT revealed an age-indeterminate left cerebellar lacunar infarct; no acute intracranial abnormalities Head/neck CTA unremarkable Brain MRI revealed no acute abnormalities; however, this imaging was ran by our neurology team, who did reconfirm age-indeterminate left cerebellar stroke Echocardiogram with bubble did not reveal an intra-arterial shunt/PFO; patient was informed of this findings Plavix 300 mg p.o. loading dose x 1 in the ED Initiate patient on DAPT with aspirin 81 mg and Plavix 75 mg daily No need for permissive HTN, as patient has been asymptomatic for almost 24h at time of admission and is normotensive on arrival No recurrence of patient's symptoms while he was in the hospital; full resolution prior to arrival Will plan to discharge patient on DAPT (aspirin 81 mg and Plavix 75 mg daily) x 21 days Discharged on atorvastatin 40 mg p.o. HS Fall precautions PT/OT evaluations appreciated #History of prior left cerebellar infarct Age-indeterminate stroke noted on head CT; patient was unaware of this Do not suspect prior stroke stroke was the cause of his acute symptoms #HLD Fasting lipid panel WNL Hold simvastatin 20 mg HS Initiate atorvastatin 40 mg p.o. HS on discharge #BPH Continue tamsulosin #Depression Continue escitalopram Day of discharge 08/28: VSS overnight Mr. Remy is in good spirits this morning. He is hoping to be discharged today. He has had no recurrence of diplopia. He does report that diplopia occurred only in his right eye, and only lasted for a few hours. He reports that he did not know about his prior history of stroke. While he was previously on aspirin 81 mg daily x 7 years for a however study, he stopped taking this after the end of his study. ROS: Patient denies fever, chills, night sweats, loss of vision, headache, rashes, tick bites, slurred speech, facial droop, unilateral deficits, chest pain, SOB, cough, abdominal pain, N/V/D, change in urinary bowel habits, or numbness or tingling in the arms or legs. Disposition: Discharge home Notes For Next Care Provider Patient hospitalized for right eye diplopia which lasted for several hours. Patient went to bed with a dual phobia and awoke to find his symptoms it fully resolved. No recurrence while in the hospital. Patient was found to have a age-indeterminate left cerebellar lacunar infarct on imaging, which she was unaware of. His symptoms are consistent with TIA. Will discharge patient on DAPT x 21 days, followed by aspirin monotherapy. Will also discharge patient on atorvastatin 40 mg p.o. HS. Patient will require a follow-up with neurology as an outpatient, as well as monitoring specialist as an outpatient. Admission HPI Per Admitting Provider Mr. Remy is an 84-year-old male with PMH of vitamin B12 deficiency and colon cancer. He presented on 08/27 for double vision that developed the night prior. Patient was feeling fine up until 9 PM when he developed diplopia in both eyes. He was gradually improving prior to bedtime, and then he woke up without any residual symptoms. No eye pain, or loss of vision. He went into see his eye doctor this morning, and was referred to the emergency department to be assessed for a TIA. Currently, all of his symptoms have fully resolved. He denies any prior history of stroke or TIA. He denies any strokelike symptoms such as slurred speech, facial droop, unilateral deficits. No PMH of T2DM or HTN. He does have a history of HLD, but was told that he might be able to be taken off the statin recently. Of note, the only recent medication change is that he was started on Lexapro a couple days ago for anxiety/depression, and he has taken 2 doses in that period of time. Patient denies any sick contacts. NKDA. No reason why he could not take aspirin or Plavix, and he was previously on aspirin x 7 years while in the [place] study. No PMH of GI bleeds or head bleeds. Patient denies smoking, tobacco use, or recent alcohol use. Patient is slightly hypothermic at 35.6 C at time of admission; vitals otherwise stable. ED course: ROS: Patient endorses tinnitus (which is chronic and has been present for the past 30 years) Patient denies fever, chills, night sweats, loss of vision, headache, rashes, tick bites, slurred speech, facial droop, unilateral deficits, chest pain, SOB, cough, abdominal pain, N/V/D, change in urinary bowel habits, or numbness or tin gling in the arms or legs. Admission Exam Per Admitting Provider General: no acute distress; pleasant affect; anxious; family at bedside; non- toxic appearing; cooperative; SpO2 98% on RA HEENT: normocephalic, atraumatic; PERRLA (eyes are dilated bilaterally) with EOMs intact; vision and hearing appear grossly intact; patient demonstrates ability to protrude and wiggle tongue bilaterally without unilateral deficits; patient demonstrates ability to smile, frown, and lift eyebrows without unilateral deficits appreciated Neck: supple; trachea midline Skin: warm, dry without signs of tenting; no cyanosis; no rashes, bruising, lesions, or erythema noted CV: chest wall NTP; RRR; S1/S2 normal; no murmurs/rubs/gallops; pulses intact and symmetric at radial, DP, and PT Lungs: no acute respiratory distress; symmetrical chest wall expansion; clear breath sounds across all lung sánchez w/o adventitious sounds; no wheezing ABD: Soft, NTP; BS present; no rebound/guarding; no distention MSK: no tics or fasciculations; no edema noted in the LEs b/l, nonerythematous; 5/5 director of marketing strength bilaterally; 5/5 strength in the upper no extremities bilaterally with flexion/extension assessed at the elbows and knees Neuro: A&Ox3; normal mood and affect; fluent speech; no facial droop; no slurred speech; negative pronator drift; patient reports sensation is intact and symmetric in the face, UE's, and LE's bilaterally Discharge Exam General: no acute distress; pleasant affect; resting peacefully in bed; non- toxic appearing; cooperative; SpO2 97% on RA HEENT: normocephalic, atraumatic; PERRLA with EOMs intact; vision and hearing intact Neck: supple; trachea midline Skin: warm, dry without signs of tenting; no cyanosis; no rashes, bruising, lesions, or erythema noted CV: chest wall NTP; RRR; S1/S2 normal; no murmurs/rubs/gallops; pulses intact and symmetric at radial, DP, and PT Lungs: no acute respiratory distress; symmetrical chest wall expansion; clear breath sounds across all lung sánchez w/o adventitious sounds; no wheezing ABD: Soft, NTP; BS present; no rebound/guarding; no distention MSK: no tics or fasciculations; no edema noted in the LEs b/l, nonerythematous; 5/5 director of marketing strength bilaterally Neuro: A&Ox3; normal mood and affect; fluent speech; no facial droop; no slurred speech; patient reports sensation is intact and symmetric in the face, UE's, and LE's bilaterally Discharge Plan Discharge Items Patient Disposition: Home - Self-Care Reason For Visit: DIPLOPIA, TIA SYMPTOMS Discharge Diagnosis: TIA Condition on Discharge: Good Activity: Resume your previous activity Non-emergency contact: Primary Care Provider and Neurologist Call non-emergency contact if: you have any medication questions and your symptoms worsen Follow-up/Referrals: Cecelia Mason MD [Primary Care Provider] - 09/04/25 11:00 am Diet: Regular Addtl Attending Provider Instructions: You are hospitalized at [facility] from 08/27 for 08/28 after transiently developing double vision in your right eye. Prior to hospitalization, you reported full resolution of your symptoms. You reported no recurrence of symptoms while in the hospital. Imaging of your brain revealed no acute findings, but did reveal an age-indeterminate left cerebellar stroke. It is suspected that you had what is called a transient ischemic attack (or TIA). While this is not a stroke, it does put you at increased risk for strokes. New prescriptions on discharge: Aspirin 81 mg daily x 21 days Plavix 75 mg daily x 21 days Atorvastatin 40 mg nightly We recommend that you remain on dual antiplatelet therapy for 21 days before switching to aspirin monotherapy. Please plan to follow-up with your PCP in the next 7 to 10 days for a transitional care appointment. During this appointment, please discuss with your PCP about setting up for cardiac monitoring as an outpatient. We also recommend that you follow-up with a neurologist given your history of prior stroke. If you develop any new or worsening symptoms, such as fever, chills, slurred speech, facial droop, unilateral deficits, vision loss, or recurrence of double vision, please return to the emergency department immediately. It was a pleasure take care of you. Please reach out with any questions or concerns. Sincerely, The Hospital medicine team at [facility] Pending Studies at Discharge: No Stand-Alone Forms: [facility], Medications to Prevent Stroke Medications and DC Order Prescriptions: New aspirin 81 mg Tablet,Delayed Release (Dr/Ec) 81 mg PO QAM Qty: 21 0RF Rx Instructions: Take 1 tablet by mouth every morning clopidogrel 75 mg Tablet 75 mg PO QAM Qty: 21 0RF Rx Instructions: Take 1 tablet by mouth every morning atorvastatin 40 mg tablet 40 mg PO HS Qty: 30 0RF Rx Instructions: Take 1 tablet by mouth at bedtime Continued tamsulosin 0.4 mg capsule 0.4 mg PO QPM Qty: 90 3RF escitalopram oxalate 5 mg tablet 5 mg PO DAILY Qty: 30 5RF cyanocobalamin (vitamin B-12) 1,000 mcg capsule 1,000 mcg PO QPM melatonin 3 mg Tablet 3 mg PO HS PRN (Reason: prn) Discontinued simvastatin 20 mg tablet 20 mg PO HS 90 Days Qty: 90 4RF Discharge Orders: Discharge Order (Routine); Ordered 08/28/25 Ordered By: Eitan Hill/Other Patient Handouts: ED TIA: Transient Ischemic Attack Admission Data Admit Date/Time: 08/27/25 17:01 Attending Provider: Chase Zelaya Admit Provider: Chase Zelaya Primary Care Provider: Cecelia Mason Other Providers: Frank Smith Other Interventions: Discharge Summary Assessment (RN) Last Done: 08/28/25 12:37 Hospital Stay Data Consultations 08/27/25 15:33 ED Decision to Admit Stat Diagnostic Imagining Performed 08/27/25 14:04 CT head/brain wo con Stat 08/27/25 14:19 CT angio head w con Stat CT angio neck with con Stat 08/27/25 16:29 MR brain wo con Routine Discharge Instructions Given to Patient (Per Discharging Provider) You are hospitalized at [facility] from 08/27 for 08/28 after transiently developing double vision in your right eye. Prior to hospitalization, you reported full resolution of your symptoms. You reported no recurrence of symptoms while in the hospital. Imaging of your brain revealed no acute findings, but did reveal an age-indeterminate left cerebellar stroke. It is suspected that you had what is called a transient ischemic attack (or TIA). While this is not a stroke, it does put you at increased risk for strokes. New prescriptions on discharge: Aspirin 81 mg daily x 21 days Plavix 75 mg daily x 21 days Atorvastatin 40 mg nightly We recommend that you remain on dual antiplatelet therapy for 21 days before switching to aspirin monotherapy. Please plan to follow-up with your PCP in the next 7 to 10 days for a transitional care appointment. During this appointment, please discuss with your PCP about setting up for cardiac monitoring as an outpatient. We also recommend that you follow-up with a neurologist given your history of prior stroke. If you develop any new or worsening symptoms, such as fever, chills, slurred speech, facial droop, unilateral deficits, vision loss, or recurrence of double vision, please return to the emergency department immediately. It was a pleasure take care of you. Please reach out with any questions or concerns. Sincerely, The Hospital medicine team at [facility] Supervising Physician Co-Signing Physician Notes I did not see or examine the patient today. I verified all riggs points and agree with Eitan Huffman PA-C with the following exceptions and/or additions: None Total Time Total Time Spent Total Time Spent (In Minutes): 35 Coding Level of Care Code 79711 INP/OBS DISCH >30 MIN Diagnoses TIA (transient ischemic attack) G45.9 Diplopia H53.2 HLD (hyperlipidemia) E78.5 History of CVA (cerebrovascular accident) Z86.73"
[2025-08-28] MEDS ORDERED: STROKE PATIENT DISCHARGE STA (11:37)
--- NOTE | 2025-08-28 11:49 | Pharmacy Report ---
- Date of Service August 28, 2025 - Pharmacy CVA/TIA Medication Review Medications to Prevent Stroke handout has been added to the patients discharge packet. Antiplatelet(s) * Aspirin 81 mg PO daily * Plavix 75 mg PO daily Cholesterol * High intensity statin: atorvastatin 80 mg daily DVT Prophylaxis * SCD knee Therapeutic Anticoagulation * No history of Afib/Aflutter noted Type 2 Diabetes * Patient does not have T2DM
--- NOTE | 2025-08-28 12:15 | XCELERA ---
[id number] [id number]
[2025-08-28 12:43] VITALS: BP 104/64
--- NOTE | 2025-08-29 15:14 | Pharmacy Report ---
Pharmacist Stroke Counseling - Date of Service August 29, 2025 - Scope: Pharmacy has been consulted to provide medication discharge counseling for this patient admitted with transient ischemic attack as per the Pharmacist Discharge Counseling for Stroke Patients Protocol. - Medications on Discharge: Home Medications Medication Instructions Recorded Confirmed cyanocobalamin (vitamin B-12) 1,000 mcg PO QPM 09/24/23 08/29/25 1,000 mcg capsule melatonin 3 mg tablet 3 mg PO HS PRN prn 09/24/23 08/29/25 New Rx's Medication Instructions Recorded tamsulosin 0.4 mg capsule 0.4 mg PO QPM #90 caps 10/11/24 escitalopram oxalate 5 mg tablet 5 mg PO DAILY #30 tabs 08/24/25 aspirin 81 mg tablet,delayed 81 mg PO QAM #21 tabs 08/28/25 release atorvastatin 40 mg tablet 40 mg PO HS #30 tabs 08/28/25 clopidogrel 75 mg tablet 75 mg PO QAM #21 tabs 08/28/25 - Action: The above medications, specifically ones for stroke treatment/prophylaxis, have been reviewed in detail with the patient and/or patient wine sales representative(s) prior to discharge. This includes indication, common adverse reactions, drug interactions, and medication administration. Medication counseling has been employed using the teach-back method to ensure understanding. - Outcome: The patient and/or patient wine sales representative(s) have demonstrated understanding of the medications. Additional comments: - Counseled patients on new medications - Patient aware to stop Plavix after 21 days (09/18/25) - Follow up appt scheduled for next week Thank you for allowing pharmacy to be involved in the care of this patient. Please call [phone] with any additional questions
== END 2025-08-28 13:14 | disposition home or self-care (01) ==
LOC: ED 13:51 → EDINP 13:51 → 2W 19:13